=== PATIENT | female | born 1955 | race Caucasian/White ===

== ENCOUNTER 2017-09-28 11:17 | Day surgery (SDC) | payer BC ==
[~2017-09-28] VITALS: Ht 162.6 cm; Wt 76.5 kg
[~2017-09-28 11:17] MED LIST: AMLO5 PO; CHLO25B PO; INSDET100; IRBE150 PO; LIRA0.6P SC; METF500 PO; METO50ER PO; OLOP.1OPSO BOTHEYES; ROSU10TA PO
== END 2017-09-28 13:28 | disposition home or self-care (01) ==
LOC: ORSCSDS 11:17
DX: M20.42 Other hammer toe(s) (acquired), left foot (principal); L72.8 Other follicular cysts of the skin and subcutaneous tissue; I10 Essential (primary) hypertension; E10.8 Type 1 diabetes mellitus with unspecified complications; Z79.82 Long term (current) use of aspirin; Z79.4 Long term (current) use of insulin; Z79.899 Other long term (current) drug therapy
CPT/HCPCS: 82947; J0171; J0690; J2250; J3010; J7120